=== PATIENT | male | born 1965 | race Asian ===

== ENCOUNTER 2021-04-12 07:49 | Emergency (ER) | payer SELFPAY ==
[~2021-04-12] VITALS: Ht 160 cm; Wt 81.8 kg
[2021-04-12] MEDS ORDERED: ONDANSETRON PF 4 MG/2 ML VIAL. IVP ONE (09:00)
[2021-04-12] MEDS ORDERED: KETOROLAC 30 MG/ML VIAL. IM ONE (09:00)
[2021-04-12 09:15] LABS: BASO % 0 % (0-3); EOS # 0.2 x10^3/uL (0.0-0.7); EOS % 2 % (0-3); HEMATOCRIT 41.5 % (39.0-53.0); HEMOGLOBIN 13.3 g/dL (13.0-17.5); LYMPH % 20 % (24-48); MEAN CORPUSCULAR HEMOGLOBIN 22 pg (25-35); MEAN CORPUSCULAR HGB CONC 32 g/dL (31-37); MEAN CORPUSCULAR VOLUME 70 fL (79-100); MONO # 0.8 x10^3/uL (0.0-1.1); MONO % 8 % (0-9); NEUT # 6.7 x10^3/uL (1.8-7.7); NEUT % 69 % (31-73); PLATELET COUNT 190 x10^3/uL (140-400); RED BLOOD COUNT 5.94 x10^6/uL (4.30-5.70); RED CELL DISTRIBUTION WIDTH 15.6 % (11.5-14.5); WHITE BLOOD COUNT 9.7 x10^3/uL (4.0-11.0)
[2021-04-12] MEDS ORDERED: KETOROLAC 30 MG/ML VIAL. IVP ONE (09:15)
[2021-04-12 09:18] LABS: BILIRUBIN,URINE NEGATIVE (NEG); CLARITY,URINE CLEAR; COLOR,URINE YELLOW; NITRITE,URINE NEGATIVE (NEG); PROTEIN,URINE NEGATIVE (NEG-TRACE); UROBILINOGEN,URINE 0.2 mg/dL (0.2 mg/dL)
[2021-04-12 09:33] LABS: CALCIUM 9.3 mg/dL (8.5-10.1); CREATININE 1.5 mg/dL (0.7-1.3); GFR 48.4; POTASSIUM 3.4 mmol/L (3.5-5.1)
--- NOTE | 2021-04-12 09:50 | RAD ---
EXAMINATION: CT ABDOMEN+PELVIS WO CLINICAL HISTORY: Left flank pain. TECHNIQUE: Imaging of the abdomen and pelvis was performed without intravenous contrast using standar d technique, scanning from just above the dome of the diaphragm to the symphysis pubis. Unenhanced i maging is limited for the evaluation of some intra-abdominal and pelvic pathology. CT Dose Reduction Employed: One or more of the following individualized dose reduction techniques wer e utilized for this examination: 1. Automated exposure control 2. Adjustment of the mA and/or kV ac cording to patient size 3. Use of iterative reconstruction technique. COMPARISON: None FINDINGS: Small old calcified granuloma in the right lower lobe. 1.8 cm ovoid right adrenal lesion with mean attenuation 27 HU, nonspecific. Liver, gallbladder, pancr eas, and spleen unremarkable. 5 mm calculus at the left ureterovesical junction with mild to moderate hydroureteronephrosis and lynne al edema with asymmetrically increased perinephric stranding. Multiple small nonobstructive renal martha culi bilaterally measuring up to 4 mm on the right and 6 mm on the left. 1.2 cm exophytic lesion mid pole right kidney, incompletely evaluated on noncontrast exam. Mildly filled urinary bladder. Small central prostatic calcification. No bowel dilation or definite wall thickening. Appendix within normal limits. Mild arterial atherosclerotic calcification. Multilevel thoracolumbar degenerative changes, greatest at L4-5. IMPRESSION: 5 mm calculus at the left ureterovesical junction with [id number] ureteronephrosis and reactive changes as described. Additional bilateral nonobstructive nephrolithiasis. Nonspecific 1.8 cm right adrenal lesion, incompletely evaluated. Consider nonemergent/outpatient adre nal protocol CT with intravenous contrast for further evaluation. Nonspecific 1.2 cm right renal lesion, incompletely evaluated. Recommend attention on adrenal CT if o btained for alternatively, nonemergent/outpatient renal ultrasound could be obtained for further eval uation. Electronically signed by: Tj Guerin DO (04/12/2021 9:47 AM) [facility]
[2021-04-12 09:55] LABS: BACTERIA,URINE 0 /HPF (0-FEW); WBC,URINE 0 /HPF (0-4)
--- NOTE | 2021-04-12 10:02 | PHYS DOC ---
Past Medical History Past Medical History: Hypertension Past Surgical History: No Surgical History Smoking Status: Current Every Day Smoker Alcohol Use: Rarely General Adult EDM: Chief Complaint: FLANK PAIN HPI: HPI: Patient is a 55 year old male with only medical history of hypertension who presents with left-sided flank pain for the past 3 days. States that it starts in his low flank region and radiates towards his left groin. Associated with nausea and one episode of vomiting this morning. Denies fever, chills, hematuria, dysuria. No changes in bowel movements. Normal bowel movement yesterday. No blood in stool. No history of kidney stones. Review of Systems: Review of Systems: Constitutional: Denies fever or chills. [] Eyes: Denies change in visual acuity. [] HENT: Denies nasal congestion or sore throat. [] Respiratory: Denies cough or shortness of breath. [] Cardiovascular: Denies chest pain or edema. [] GI: Reports nausea and vomiting. Denies bloody stools or diarrhea. [] : Reports left flank pain Musculoskeletal: Denies back pain or joint pain. [] Integument: Denies rash. [] Neurologic: Denies headache, focal weakness or sensory changes. [] Endocrine: Denies polyuria or polydipsia. [] Lymphatic: Denies swollen glands. [] Psychiatric: Denies depression or anxiety. [] Heart Score: C/O Chest Pain: No Risk Factors: Risk Factors: DM, Current or recent (<one month) smoker, HTN, HLP, family history of CAD, obesity. Risk Scores: Score 0 - 3: 2.5% MACE over next 6 weeks - Discharge Home Score 4 - 6: 20.3% MACE over next 6 weeks - Admit for Clinical Observation Score 7 - 10: 72.7% MACE over next 6 weeks - Early Invasive Strategies Current Medications: Current Medications Medications (Trade) Dose Ordered Sig/Javier Start Time Stop Time Status Last Admin Dose Admin Ketorolac Tromethamine (Toradol 30mg Vial) 15 mg 1X ONCE 04/12/21 09:15 04/12/21 09:18 DC 04/12/21 09:15 15 MG Ondansetron HCl (Zofran) 4 mg 1X ONCE 04/12/21 09:00 04/12/21 09:01 DC 04/12/21 09:09 4 MG Allergies: Allergies: Allergies Coded Allergies Type Severity Reaction Last Updated Verified No Known Drug Allergies 04/12/21 No Physical Exam: PE: Constitutional: Appears mildly uncomfortable HENT: Normocephalic, atraumatic Eyes: PERRLA, EOMI, conjunctiva normal, no discharge. [] Neck: Normal range of motion, no tenderness, supple, no stridor. [] Cardiovascular:Heart rate regular rhythm, no murmur [] Lungs & Thorax: Bilateral breath sounds clear to auscultation [] Abdomen: Mild left lower quadrant tenderness to palpation. No rebound, guarding, rigidity Skin: Warm, dry, no erythema, no rash. [] Back: + L CVA tenderness Extremities: No tenderness, no cyanosis, no clubbing, ROM intact, no edema. [] Neurologic: Alert and oriented X 3, normal motor function, normal sensory function, no focal deficits noted. [] Psychologic: Affect normal, judgement normal, mood normal. [] Current Patient Data: Labs: Laboratory Tests Test 04/12/21 08:50 04/12/21 09:00 Urine Collection Type Unknown Urine Color Yellow Urine Clarity Clear Urine pH 6.0 (<5.0-8.0) Urine Specific Saucier 1.015 (1.000-1.030) Urine Protein Negative mg/dL (NEG-TRACE) Urine Glucose (UA) Negative mg/dL (NEG) Urine Ketones (Stick) Negative mg/dL (NEG) Urine Blood Small (NEG) Urine Nitrite Negative (NEG) Urine Bilirubin Negative (NEG) Urine Urobilinogen Dipstick 0.2 mg/dL (0.2 mg/dL) Urine Leukocyte Esterase Negative (NEG) Urine RBC 6-10 /HPF (0-2) Urine WBC 0 /HPF (0-4) Urine Squamous Epithelial Cells Occ /LPF Urine Bacteria 0 /HPF (0-FEW) Urine Mucus Mod /LPF White Blood Count 9.7 x10^3/uL (4.0-11.0) Red Blood Count 5.94 x10^6/uL (4.30-5.70) H Hemoglobin 13.3 g/dL (13.0-17.5) Hematocrit 41.5 % (39.0-53.0) Mean Corpuscular Volume 70 fL (79-100) L Mean Corpuscular Hemoglobin 22 pg (25-35) L Mean Corpuscular Hemoglobin Concent 32 g/dL (31-37) Red Cell Distribution Width 15.6 % (11.5-14.5) H Platelet Count 190 x10^3/uL (140-400) Neutrophils (%) (Auto) 69 % (31-73) Lymphocytes (%) (Auto) 20 % (24-48) L Monocytes (%) (Auto) 8 % (0-9) Eosinophils (%) (Auto) 2 % (0-3) Basophils (%) (Auto) 0 % (0-3) Neutrophils # (Auto) 6.7 x10^3/uL (1.8-7.7) Lymphocytes # (Auto) 2.0 x10^3/uL (1.0-4.8) Monocytes # (Auto) 0.8 x10^3/uL (0.0-1.1) Eosinophils # (Auto) 0.2 x10^3/uL (0.0-0.7) Basophils # (Auto) 0.0 x10^3/uL (0.0-0.2) Platelet Estimate Pending Sodium Level 146 mmol/L (136-145) H Potassium Level 3.4 mmol/L (3.5-5.1) L Chloride Level 111 mmol/L (98-107) H Carbon Dioxide Level 24 mmol/L (21-32) Anion Gap 11 (6-14) Blood Urea Nitrogen 25 mg/dL (8-26) Creatinine 1.5 mg/dL (0.7-1.3) H Estimated GFR (Cockcroft-Gault) 48.4 Glucose Level 108 mg/dL (70-99) H Calcium Level 9.3 mg/dL (8.5-10.1) Laboratory Tests 04/12/21 09:00 Laboratory Tests 04/12/21 09:00 Vital Signs: Vital Signs Date Time Temp Pulse Resp B/P (MAP) Pulse Ox O2 Delivery O2 Flow Rate FiO2 04/12/21 08:41 97.6 55 22 188/99 (128) 99 Room Air 97.6 EKG: EKG: [] Radiology/Procedures: Radiology/Procedures: [] Impression: [facility] [address] [place], [place] [id number] IMAGING REPORT Signed PATIENT: ARNOLD NOBLES ACCOUNT: [id number] : 1965 LOCATION: ER AGE: 55 SEX: M EXAM STATUS: REG ER ORD. PHYSICIAN: AUGUSTO FISHMAN MD REASON: LEFT FLANK PAIN PROCEDURE: CT ABDOMEN PELVIS WO CONTRAST EXAMINATION: CT ABDOMEN+PELVIS WO CLINICAL HISTORY: Left flank pain. TECHNIQUE: Imaging of the abdomen and pelvis was performed without intravenous contrast using standard technique, scanning from just above the dome of the diaphragm to the symphysis pubis. Unenhanced imaging is limited for the evaluation of some intra-abdominal and pelvic pathology. CT Dose Reduction Employed: One or more of the following individualized dose reduction techniques were utilized for this examination: 1. Automated exposure control 2. Adjustment of the mA and/or kV according to patient size 3. Use of iterative reconstruction technique. COMPARISON: None FINDINGS: Small old calcified granuloma in the right lower lobe. 1.8 cm ovoid right adrenal lesion with mean attenuation 27 HU, nonspecific. Liver, gallbladder, pancreas, and spleen unremarkable. 5 mm calculus at the left ureterovesical junction with mild to moderate hydroureteronephrosis and renal edema with asymmetrically increased perinephric stranding. Multiple small nonobstructive renal calculi bilaterally measuring up to 4 mm on the right and 6 mm on the left. 1.2 cm exophytic lesion mid pole right kidney, incompletely evaluated on noncontrast exam. Mildly filled urinary bladder. Small central prostatic calcification. No bowel dilation or definite wall thickening. Appendix within normal limits. Mild arterial atherosclerotic calcification. Multilevel thoracolumbar degenerative changes, greatest at L4-5. IMPRESSION: 5 mm calculus at the left ureterovesical junction with [id number] ureteronephrosis and reactive changes as described. Additional bilateral nono bstructive nephrolithiasis. Nonspecific 1.8 cm right adrenal lesion, incompletely evaluated. Consider nonemergent/outpatient adrenal protocol CT with intravenous contrast for further evaluation. Nonspecific 1.2 cm right renal lesion, incompletely evaluated. Recommend attention on adrenal CT if obtained for alternatively, nonemergent/outpatient renal ultrasound could be obtained for further evaluation. Electronically signed by: Tj Hendricks DO (04/12/2021 9:47 AM) [facility] DICTATED and SIGNED BY: TJ HENDRICKS DO DATE: 04/12/21 [id number] 0 Course & Med Decision Making: Course & Med Decision Making Pertinent Labs and Imaging studies reviewed. (See chart for details) Patient 55-year-old male presents with left flank pain concerning for ureterolithiasis. No history of same. Vital signs stable. No fever. Overall well-appearing on exam, although mildly uncomfortable. CT reveals a 5 mm left UVJ stone with hydronephrosis. Creatinine 1.5, other electrolytes normal. No evidence of septic stone by labs or history. Given minor renal injury, 1 L IVF given. Pain much improved. Will given urology follow up, tamsulosin, short Rx for oxycodone for breakthrough pain. Instructed to schedule a urology appt if pain is not resolved by Wednesday. Return to ED for uncontrollable pain, fever/chills, severe n/v. Dragon Disclaimer: Cam Disclaimer: This electronic medical record was generated, in whole or in part, using a voice recognition dictation system. Departure Departure Impression: Primary Impression: Ureterolithiasis Disposition: HOME / SELF CARE / HOMELESS Condition: STABLE Referrals: NO PCP (PCP) JONO COLON DO Schedule appointment on Wednesday if your symptoms are continuing. Additional Instructions: You have a 5 mm left sided stone in your ureter just above your bladder. The ureter is a tube that connects your kidneys to your bladder. This will hopefully pass on its own. Sometimes stones need surgical intervention to pass. So, please call one of the follow practice locations for urology follow up. Please call Dr. Colon's office (our client relation specialist urologist) on Wednesday if your symptoms are persistent to schedule a follow-up appointment. If the number listed und Dr. Colon is not working use the following: [facility] [phone] You may need a PCP referral depending on insurance and particular urology practice requirements. The focus for now is on pain control. For pain tylenol and ibuprofen are best used on a schedule. Please alternate between the two. -Tylenol 1000 mg every 6 hours (do not exceed 4000 mg in one day). -Ibuprofen 600 mg every 6 hours. Take with food. Do not take for more than 1 week. For pain not managed by the above you can take: Oxycodone 1 tab every 4-6 hours. Oxycodone is an addictive medication and can cause constipation. Please limit its use to as little as possible. You can also make you drowsy, so do not use if operating machinery or car. For nausea: Zofran 4 mg every 6 hours, let it dissolve under your tongue. To help the stone pass there is a medication called tamsulosin. Please take 1 tab once daily. RETURN to the emergency department if you pain cannot be managed with the above medications, you have fever, nausea that cannot be treated with zofran, or if you have other new concerns. Scripts Oxycodone Hcl (OXYCODONE HCL) 5 Mg Capsule 5 MG PO PRN Q6HRS PRN for PAIN, #12 TAB 0 Refills Prov: AUGUSTO FISHMAN MD 04/12/21 Tamsulosin Hcl (FLOMAX) 0.4 Mg Cap.er.24h 1 CAP PO DAILY, #14 CAP 0 Refills Prov: AUGUSTO FISHMAN MD 04/12/21 Ondansetron Hcl (ZOFRAN) 4 Mg Tablet 1 TAB PO PRN Q6-8HRS for nausea, #12 TAB Prov: AUGUSTO FISHMAN MD 04/12/21 AUGUSTO FISHMAN MD Apr 12, 2021 10:02
[2021-04-12] MEDS ORDERED: TAMSULOSIN 0.4 MG CAP.ER.24H. PO ONE (10:15)
[2021-04-12] MEDS ORDERED: IV RINGERS,LACTATED 500ML 1,000 ML IV ONE (10:15)
[2021-04-12] MEDS ORDERED: OXYC5CAP PO (11:01)
[2021-04-12] MEDS ORDERED: ONDA4TAB7 PO (11:01)
[2021-04-12] MEDS ORDERED: TAMS0.4C97 PO (11:01)
[2021-04-12 11:07] LABS: HYPOCHROMIA PRESENT; MICROCYTOSIS PRESENT; PLT ESTIMATE ADEQUATE (ADEQUATE)
[2021-04-12 11:37] VITALS: BP 130/80
[2021-04-12] MEDS ORDERED: PROM25SU33 RC (23:47)
[2021-04-12] MEDS ORDERED: TRAM50TA PO (23:47)
== END 2021-04-12 12:06 | disposition home or self-care (01) ==
LOC: ER 07:49
DX: N20.1 Calculus of ureter (principal); R11.2 Nausea with vomiting, unspecified; I10 Essential (primary) hypertension; F17.200 Nicotine dependence, unspecified, uncomplicated
CPT/HCPCS: 36415; 74176; 80048; 81001; 85025; 96361; 96374; 96375; 99284; J1885; J2405; J7120

== ENCOUNTER 2021-04-12 21:45 | Emergency (ER) | payer SELFPAY ==
[~2021-04-12] VITALS: Ht 160 cm; Wt 81.0 kg
[~2021-04-12 21:45] MED LIST: ONDA4TAB7 PO; OXYC5CAP PO; TAMS0.4C97 PO
[2021-04-12] MEDS ORDERED: PROMETHAZINE 25 MG SUPP.RECT. PR ONE (23:30)
[2021-04-12] MEDS ORDERED: KETOROLAC 30 MG/ML VIAL. IM ONE (23:30)
[2021-04-12] MEDS ORDERED: TRAM50TA PO (23:47)
[2021-04-12] MEDS ORDERED: PROM25SU33 RC (23:47)
[2021-04-12 23:50] VITALS: BP 157/89
--- NOTE | 2021-04-12 23:51 | PHYS DOC ---
Past Medical History Past Medical History: Hypertension, Kidney Stone Past Surgical History: No Surgical History Smoking Status: Current Every Day Smoker Alcohol Use: Rarely Drug Use: None General Adult EDM: Chief Complaint: FLANK PAIN HPI: HPI: Patient is a 55-year-old male presents with report of intractable nausea and vomiting with increased pain despite taking nausea and pain medication after being diagnosed with a left-sided ureteral kidney stone this morning in emergency department at [facility]. Patient was found to have CT imaging noting a 5 mm distal left UVJ stone per [employer] review. Patient was prescribed oxycodone and Zofran ODT. Reports has vomited multiple times after taking the oxycodone despite use of Zofran ODT. Patient reports also took some ibuprofen at approximately 1500 this afternoon. Denies trauma. Denies fever or chills. Review of Systems: Review of Systems: Constitutional: Denies fever or chills Eyes: Denies redness or eye pain HENT: Denies nasal congestion or sore throat Respiratory: Denies cough or shortness of breath Cardiovascular: Denies chest pain or palpitations GI: Reports abdominal pain, nausea, and vomiting : Denies dysuria or hematuria Musculoskeletal: Reports left flank/back pain; denies joint pain Integument: Denies rash or skin lesions Neurologic: Denies headache, focal weakness or sensory changes Complete systems were reviewed and found to be within normal limits, except as documented in this note. Heart Score: C/O Chest Pain: N/A Current Medications: Current Medications Medications (Trade) Dose Ordered Sig/Javier Start Time Stop Time Status Last Admin Dose Admin Ketorolac Tromethamine (Toradol 30mg Vial) 30 mg 1X ONCE 04/12/21 23:30 04/12/21 23:31 DC 04/12/21 23:03 30 MG Promethazine HCl (Phenergan Supp) 25 mg 1X ONCE 04/12/21 23:30 04/12/21 23:31 DC 04/12/21 23:04 25 MG Allergies: Allergies: Allergies Coded Allergies Type Severity Reaction Last Updated Verified No Known Drug Allergies 04/12/21 No Physical Exam: PE: Constitutional: Well developed, well nourished, no acute distress, non-toxic appearance HENT: Normocephalic, atraumatic Eyes: Conjunctiva normal, no discharge Neck: Normal range of motion, supple Lungs & Thorax: No respiratory distress, equal chest rise and fall Abdomen: Soft, no tenderness, no guarding/rebound tenderness/distention Skin: Warm, dry, no erythema, no rash Back: No tenderness, mild left CVA tenderness Extremities: No tenderness, ROM intact, no edema Neurologic: Alert and oriented X 3, no focal deficits noted Psychologic: Affect normal, judgment normal Current Patient Data: Vital Signs: Vital Signs Date Time Temp Pulse Resp B/P (MAP) Pulse Ox O2 Delivery O2 Flow Rate FiO2 04/12/21 22:35 98.6 95 20 143/87 (105) 97 Room Air 98.6 EKG: EKG: [] Radiology/Procedures: Radiology/Procedures: [] Course & Med Decision Making: Course & Med Decision Making Patient with known 5 mm left distal UVJ stone presents with report of intractable nausea and vomiting despite use of oxycodone and Zofran ODT at home. Previous ER visit from this morning reviewed including laboratory and radiologic data. Physical exam without peritoneal signs. A Phenergan suppository and IM shot of Toradol provided with interval improvement of symptoms. Concerned that nausea may also be secondary to prescribed pain medication. Will switch to tramadol. We will also provide additional prescription for Phenergan suppositories as needed. Patient stable for discharge with outpatient follow-up with PCP. Discussed findings and plan with patient and family, who acknowledge understanding and agreement. Cam Disclaimer: Cam Disclaimer: This electronic medical record was generated, in whole or in part, using a voice recognition dictation system. Departure Departure Impression: Primary Impression: Intractable nausea and vomiting Additional Impression: Ureteral calculus, left Disposition: 01 HOME / SELF CARE / HOMELESS Condition: STABLE Referrals: NO PCP (PCP) Patient Instructions: Diet for Kidney Stones, Kidney Stones, [id number] Additional Instructions: Use ibuprofen as needed for pain taking 3 [id number] tablets or 600 mg every 6-8 hours as needed. May also take 1 egok-apr-thvyphk Tylenol with each tablet of tramadol for pain. Scripts Promethazine Hcl (PROMETHAZINE HCL) 25 Mg Supp.rect 25 MG RC Q6H PRN for NAUSEA/VOMITING, #14 SUPP.RECT Prov: MOMO REN DO 04/12/21 Tramadol Hcl (TRAMADOL HCL) 50 Mg Tablet 50 MG PO Q6HRS PRN for PAIN, #14 TAB Prov: MOMO REN DO 04/12/21 MOMO REN DO Apr 12, 2021 23:51
== END 2021-04-12 23:55 | disposition home or self-care (01) ==
LOC: ER 21:45
DX: N20.1 Calculus of ureter (principal); R11.2 Nausea with vomiting, unspecified; I10 Essential (primary) hypertension; F17.200 Nicotine dependence, unspecified, uncomplicated
CPT/HCPCS: 96372; 99283; J1885